=== PATIENT | female | born 1965 | race Two or more races ===

== ENCOUNTER 2024-03-10 07:43 | Outpatient (CLI) | payer OTHER ==
[2024-03-24] MEDS ORDERED: SYNTHROID88 MCG PO (08:09)
[2024-03-24] MEDS ORDERED: FOLIC ACID0.8 M1 PO (08:09)
== END 2024-03-10 07:47 | disposition home or self-care (01) ==
LOC: SONOGRAMA 07:43
PROVIDERS: ATTEND Pathology Anatomic Pathology & Clinical Pathology
DX: E04.1 Nontoxic single thyroid nodule (principal); D34 Benign neoplasm of thyroid gland; E06.3 Autoimmune thyroiditis

== ENCOUNTER 2024-03-26 04:50 | Day surgery (SDC) | payer OTHER ==
[2024-03-24 08:10] VITALS: BP 106/66
[2024-03-24 08:40] LABS: URINE APPEARANCE Clear; URINE BILIRRUBIN Negative (NEGATIVE); URINE BLOOD Negative; URINE COLOR Yellow; URINE GLUCOSE Negative (NEGATIVE); URINE KETONE Negative (NEGATIVE); URINE LEUKOCYTE Small; URINE NITRATE Negative; URINE PROTEIN Negative (NEGATIVE); URINE UROBILINOGEN 0.2 E.U./dl
[2024-03-24 08:52] LABS: HEMATOCRIT 38.9 % (36.0-45.00); HEMOGLOBIN 12.8 g/dL (12.0-15.00); MEAN CELL VOLUME 88.7 fL (80.00-100.00); MEAN CORPUSCULAR HEMOGLOBIN 29.3 pg (27.00-32.0); PLATELET COUNT 305 K/uL (150-450); RED BLOOD COUNT 4.38 M/uL (4.00-6.00); RED CELL DISTRIBUTION WIDTH 12.9 % (11.5-14.5)
[2024-03-24 08:54] LABS: URINE BACTERIA 64.8 uL (0.0-1933); URINE WBC 6.7 uL (0.0-23.2)
[2024-03-24 08:59] LABS: URINE CAST 0.44 uL (0.0-1.40)
[2024-03-24 09:07] LABS: INR 1.02; PARTIAL THROMBOPLASTIN TIME 26.6 SECONDS (22.0-34.0); PROTHROMBIN TIME 11.1 SECONDS (9.0-11.5)
[2024-03-24 09:25] LABS: ALBUMIN 3.8 gm/dL (3.4-5.0); BILIRUBIN TOTAL 0.4 mg/dL (0.3-1.2); CALCIUM 9.9 mg/dL (8.5-10.1); CREATININE SERUM 0.76 mg/dL (0.55-1.02); GFR 78.16; GLOBULINA 3.8 G/DL (2.4-3.5); POTASSIUM 4.23 mEq/L (3.5-5.1); TOTAL PROTEIN 7.6 gm/dL (6.4-8.2)
[~2024-03-26] VITALS: Ht 174 cm; Wt 59.9 kg
[~2024-03-26 04:50] MED LIST: FOLIC ACID0.8 M1 PO; SYNTHROID88 MCG PO
[2024-03-26] MEDS ORDERED: MORPHINE SULFATE 4 MG/ML VIAL IV ONE ×2 (09:35→10:05)
[2024-03-26] MEDS ORDERED: CEFAZOLIN SODIUM 1,000 MG VIAL IV ONE (19:15)
== END 2024-03-26 11:55 | disposition home or self-care (01) ==
LOC: CIR.AMB 04:50
PROVIDERS: ATTEND Surgery
DX: K80.10 Calculus of gallbladder with chronic cholecystitis without obstruction (principal); M19.90 Unspecified osteoarthritis, unspecified site